=== PATIENT | male | born 1965 | race Caucasian/White ===

== ENCOUNTER → 2017-01-10 | Outpatient (CLI) | payer OTHER ==
[~2017-01-10] MED LIST: ADVIL200 M3 PO; LISINOPRIL-HCTZ1 T14 PO; NO MEDICATIONS
--- NOTE | ~2017-01-10 | CR63 ---
[facility] A Service of [facility] & [facility] RADIOLOGY TEXT RESULTS PATIENT: IAN COOK LOCATION: [facility] : [birth year] UNIT #: [id number] AGE: [address]: Souleymane Zambrano MD SEX: M ORDER DR: [id number] [facility] [address] [place], [place] [address] [id number] O MR#: [id number] Acc #: [id number] NAME: IAN COOK : 1965 SEX: M STUDY DATE/TIME: 01/10/2017 10:43 UNIT: [facility] ROOM: STUDY DESCRIPTION: CR Chest 2 View Attending Physician: Souleymane Zambrano M.D., Ph.D. Referring Physician: Souleymane Zambrano M.D., Ph.D. Ordering Physician: Suoleymane Zambrano M.D., Ph.D. Primary Care Physician: Maykel Coleman M.D. MEDICAL IMAGING REPORT This report is preliminary unless electronic signature is present EXAM Chest, 2 views, 01/10/2017, 1043 hours. CLINICAL HISTORY 51-year-old man with a history of right lung carcinoma for followup. Symptoms began 5 years ago. No current chest complaints. COMPARISON 01/11/2016 FINDINGS Upright PA and lateral views of the chest demonstrate volume loss in the right hemithorax, unchanged. There is a normal heart size. Mediastinal and hilar contours are normal. The lungs are clear. No effusions. IMPRESSION Stable volume loss right hemithorax. There are no acute cardiopulmonary findings. Dictated by... Barbara Lucia M.D. THIS IS AN ELECTRONICALLY VERIFIED REPORT Barbara Lucia M.D. at 01/10/2017 2:21 PM SHONA/jenise TD: 01/10/2017 14:08 JOB #: [id number] MEDICAL IMAGING REPORT Page 1 of 1 COPY
== END | disposition home or self-care (01) ==
LOC: CRAD 10:22
DX: C34.90 Malignant neoplasm of unspecified part of unspecified bronchus or lung (principal)
CPT/HCPCS: 71020